=== PATIENT | female | born 1985 | race African-American/Black ===

== ENCOUNTER 2017-09-08 16:00 | Emergency (ER) | payer MEDICAID, OTHER ==
[~2017-09-08] VITALS: Ht 170.2 cm; Wt 71.0 kg
[2017-09-08 17:06] LABS: BASOPHILS % 1.2 % (0.0-2.0); EOSINOPHILS % 1.6 % (0.0-5.0); HEMATOCRIT. 36.8 % (36.0-48.0); MEAN CORPUSCULAR HEMOGLOBIN 27.3 pg (28.0-32.0); MEAN CORPUSCULAR VOLUME 83.8 fL (81.0-99.0); MEAN PLATELET VOLUME 8.5 fl (7.4-10.4); MONOCYTES % 9.9 % (2.0-8.0); NEUTROPHILS % 55.3 % (40.0-76.0); PLATELET 296 x1000/uL (130-400); RED BLOOD CELL COUNT 4.39 mill/uL (4.2-5.4); RED CELL DISTRIBUTION WIDTH 14.7 % (11.6-14.6)
[2017-09-08 17:12] LABS: HCG SCREEN NEGATIVE
[2017-09-08 17:19] LABS: CARBON DIOXIDE 28 mEq/L (21-32); CHLORIDE 109 mEq/L (98-107)
[2017-09-08] MEDS ORDERED: ONDANSETRON HCL 4MG/2ML VIAL IV STA (17:20)
[2017-09-08] MEDS ORDERED: SODIUM CHLORIDE 0.9% 1,000 ML IV ONE (17:20)
[2017-09-08] MEDS ORDERED: MORPHINE SULFATE 4 MG/ML CPJ (NOT FOR IM USE) IV STA (17:20)
[2017-09-08] MEDS ORDERED: AZITHROMYCIN 500 MG TABLET PO ONE (17:30)
[2017-09-08] MEDS ORDERED: CEFTRIAXONE SODIUM 250 MG/VIAL IM ONE (17:30)
[2017-09-08 18:03] LABS: CLARITY URINE CLEAR (CLEAR); COLOR URINE YELLOW (YELLOW); GLUCOSE URINE NEGATIVE (NEGATIVE); KETONES URINE TRACE (NEGATIVE); LEUKOCYTE ESTERASE URINE NEGATIVE (NEGATIVE); NITRITE URINE NEGATIVE (NEGATIVE); OCCULT BLOOD URINE NEGATIVE (NEGATIVE); PROTEIN URINE TRACE (NEGATIVE); SPECIFIC GRAVITY URINE 1.048 (1.005-1.030)
[2017-09-08] MEDS ORDERED: STERILE WATER FOR INJECTION 10ML VIAL ONE (18:36)
[2017-09-08 19:30] VITALS: BP 118/73
== END 2017-09-08 19:56 | disposition home or self-care (01) ==
LOC: ER 16:00
DX: Z20.2 Contact with and (suspected) exposure to infections with a predominantly sexual mode of transmission (principal); Z90.49 Acquired absence of other specified parts of digestive tract
CPT/HCPCS: 36415; 80053; 81001; 84703; 85025; 96361; 96372; 96374; 96375; 99285; A4216; J0696; J2270; J2405; J7030

== ENCOUNTER 2018-03-28 11:33 | Emergency (ER) | payer MEDICAID ==
[~2018-03-28] VITALS: Ht 167.6 cm; Wt 60.0 kg
[2018-03-28 13:22] LABS: CLARITY URINE CLEAR (CLEAR); COLOR URINE YELLOW (YELLOW); KETONES URINE NEGATIVE (NEGATIVE); LEUKOCYTE ESTERASE URINE NEGATIVE (NEGATIVE); NITRITE URINE NEGATIVE (NEGATIVE); OCCULT BLOOD URINE NEGATIVE (NEGATIVE); PROTEIN URINE NEGATIVE (NEGATIVE); SPECIFIC GRAVITY URINE 1.023 (1.005-1.030); UROBILINOGEN URINE 0.2 E.U./dL (0.2-1.0)
[2018-03-28] MEDS ORDERED: ACETAMINOPHEN WITH CODEINE 300/30MG TABLET PO ONE (16:00)
[2018-03-28 16:09] VITALS: BP 117/72
== END 2018-03-28 16:19 | disposition home or self-care (01) ==
LOC: ER 13:31
DX: M54.5 Low back pain (principal)
CPT/HCPCS: 72100; 81003; 81025; 99285; Z7610